=== PATIENT | male | born 1990 | race Caucasian/White ===

== ENCOUNTER 2022-05-21 02:23 | Emergency (ER) | payer BC, SELFPAY ==
[2022-05-21] VITALS (41 sets, daily range): BP systolic 122–151; BP diastolic 81–93; PULSE 67–93; RESP 16–20; TEMP 36.6; O2SAT 95–100
--- NOTE | ~2022-05-21 | CT_ITS ---
EXAMINATION: CT brain wo con DATE: 05/21/2022 06:33 INDICATION: Acute frontal headache. TECHNIQUE: Computed tomography (CT) of the head was performed without intravenous contrast. The mA wa s adjusted according to patient size. Iterative reconstruction technique was employed. The dose-lengt h product was 605.33 mGy-cm. COMPARISON: None FINDINGS: There is no intracranial hemorrhage, acute infarction, or abnormal intracranial mass lesion . The ventricles are normal in size. The orbits are normal. There is mucosal thickening in the parana dana sinuses. The mastoid air cells are normal. IMPRESSION: 1. Normal brain. Reviewed, dictated and finalized at location A. IMPRESSION: 1. Normal brain.
--- NOTE | 2022-05-21 05:34 | ED.HA ---
HPI - Headache General Chief Complaint: Headache <Ledy New MD - Last Filed: 05/21/22 09:49> Stated Complaint: headache, ear pain <Ledy New MD - Last Filed: 05/21/22 09:49> Time Seen by Provider: 05/21/22 04:59 <Ledy New MD - Last Filed: 05/21/22 09:49> Source: patient and RN notes reviewed <Ledy New MD - Last Filed: 05/21/22 09:49> Mode of arrival: ambulatory <Ledy New MD - Last Filed: 05/21/22 09:49> Limitations: no limitations <Ledy New MD - Last Filed: 05/21/22 09:49> History of Present Illness HPI Narrative: This is a 31 year old male who presents for evaluation of headache. He developed throbbing frontal headache Wednesday afternoon and it worsened throughout the evening. His headache has been constant and it is worse with movement. He reports having nausea and emesis x 2. He denies fever, URI, headache, focal weakness, or neck pain. He has been taking excedrin and ibuprofen for her pain, and his last dose was 6 hours ago. He was sleeping when i came into room and he reports pain is 4/10. He reports he got water into his left ear tonight and he feels like he can now get it out. <Ledy New MD - Last Filed: 05/21/22 09:49> Related Data Allergies/Adverse Reactions: Allergies Allergy/AdvReac Type Severity Reaction Status Date / Time No Known Allergies Allergy Verified 05/21/22 02:41 <Ledy New MD - Last Filed: 05/21/22 09:49> Review of Systems Review of Systems: All systems reviewed & are unremarkable except as noted in HPI and below <Ledy New MD - Last Filed: 05/21/22 09:49> Constitutional: Constitutional: Reports chills, Denies fatigue and Denies fever(s) <Ledy New MD - Last Filed: 05/21/22 09:49> Eyes: Eyes: Reports photophobia <Ledy New MD - Last Filed: 05/21/22 09:49> ENT: Denies nasal congestion and Denies sore throat <Ledy New MD - Last Filed: 05/21/22 09:49> Gastrointestinal: Gastrointestinal: Denies abdominal pain <Ledy New MD - Last Filed: 05/21/22 09:49> Neurologic: Denies syncope, Reports headache(s), Denies focal weakness and Denies numbness <Ledy New MD - Last Filed: 05/21/22 09:49> PMFSH Past Medical History Medical History: Medical History (Updated 05/21/22 @ 08:37 by David Del Cid MD) Patient denies medical problems <Ledy New MD - Last Filed: 05/21/22 09:49> Surgical History Surgical History: Surgical History (Updated 05/21/22 @ 05:38 by Ledy New MD) No pertinent past surgical history <Ledy New MD - Last Filed: 05/21/22 09:49> Social History Social History: Social History (Updated 05/21/22 @ 05:38 by Ledy New MD) Smoking status: Never smoker <Ledy New MD - Last Filed: 05/21/22 09:49> Exam Const: General: no acute distress and alert <Ledy New MD - Last Filed: 05/21/22 09:49> Nutritional Appearance: well nourished <Ledy New MD - Last Filed: 05/21/22 09:49> Orientation/consciousness: patient oriented x3 <Ledy New MD - Last Filed: 05/21/22 09:49> Limitations: no limitations <Ledy New MD - Last Filed: 05/21/22 09:49> HENMT: Head: normal to inspection <Ledy New MD - Last Filed: 05/21/22 09:49> Ears: TM abnormal obstructed by cerumen on the left <Ledy New MD - Last Filed: 05/21/22 09:49> Face and sinus: normal facial exam <Ledy New MD - Last Filed: 05/21/22 09:49> Mouth: Yes Normal oral and palatal mucosa present <Ledy New MD - Last Filed: 05/21/22 09:49> Eyes: Pupils: Equal, round and reactive pupils present <Ledy New MD - Last Filed: 05/21/22 09:49> EOM: EOMs intact bilaterally <Ledy New MD - Last Filed: 05/21/22 09:49> Neck: Neck: normal visual inspection, no lymphadenopathy and no meningeal signs <Ledy New MD - L
[2022-05-21] MEDS: diphenhydrAMINE HCl INJ 50 MG/ML VIAL 25 MG IV PUSH (05:41)
[2022-05-21] MEDS: SODIUM CHLORIDE 0.9% IV 1,000 ML 999 ML IV CONT ×2 (05:41→07:00)
[2022-05-21] MEDS: METOCLOPRAMIDE HCL INJ 10 MG/2 ML VIAL IV PUSH (05:41)
[2022-05-21] MEDS: KETOROLAC 30 MG/ML VIAL (*BKC) IV PUSH (05:42)
[2022-05-21 06:21] LABS: SARS-CoV-2 RNA PCR Negative
[2022-05-21 06:46] LABS: Basophils Percent Auto 0.2 % (0.2-1.2); Hematocrit 41.2 % (42.0-52.0); Immature Granulocyte Absolute 0.02 K/mm3 (0.00-0.031); Immature Granulocyte Percent A 0.5 % (0-0.5); Lymphocytes Absolute Auto 1.11 K/mm3 (0.9-3.2); Lymphocytes Percent Auto 26.5 % (18.3-44.2); Mean Corpuscular Volume 85.5 fl (80-100); Mean Platelet Volume 8.4 fl (7.4-10.4); Monocytes Absolute Auto 0.7 K/mm3 (0.1-0.6); Monocytes Percent Auto 17.4 % (2.6-8.5); Neutrophils Absolute Auto 2.3 K/mm3 (1.3-6.7); Neutrophils Percent Auto 55.4 % (45.5-73.1); Platelet Count Result 118 k/mm3 (150-375); Red Blood Count 4.82 M/mm3 (4.6-6.20); White Blood Count 4.2 K/mm3 (4.5-10.0)
[2022-05-21 06:58] LABS: Alanine Aminotransferase 39 U/L (6-50); Albumin Level 4.3 g/dL (3.5-5.1); Alkaline Phosphatase 46 U/L (38-126); Anion Gap 12 mmol/L (8-16); Aspartate Amino Transferase 39 U/L (17-59); Bilirubin,Total 0.5 mg/dL (0.2-1.3); Blood Urea Nitrogen 7 mg/dL (9-20); Calcium 8.6 mg/dL (8.4-10.2); Carbon Dioxide 24 mmol/L (22-30); Chloride 103 mmol/L (98-107); Estimated CRCL calculation 125 ml/min; Estimated Glomerular Filt Rate > 60; Glucose 102 mg/dL (65-110); Potassium 3.9 mmol/L (3.4-5.0); Sodium 139 mmol/L (137-145)
[2022-05-21] MEDS: methylPREDNISolone SOD SUCC 125 MG VIAL IV PUSH (07:00)
[2022-05-21 07:09] LABS: INR 1.2; Prothrombin Time 14.6 Seconds (11.1-14.7)
--- NOTE | 2022-05-21 07:17 | PC.NURSE ---
BSSR to Avril FARIAS
[2022-05-21 07:30] LABS: Partial Thromboplastin Time 32.9 SECONDS (22.3-36.8)
[2022-05-21] MEDS: PROCHLORPERAZINE EDISYLATE 10 MG/2 ML VIAL IV PUSH (08:53)
[2022-05-21] MEDS: MAGNESIUM SULF 2 GM/WATER 50ML 2 GM/50 ML BAG IVPB (08:53)
== END 2022-05-21 09:54 | disposition home or self-care (01) ==
PROVIDERS: Emergency Provider General Practice
DX: G43.909 Migraine, unspecified, not intractable, without status migrainosus (principal); Z20.822 Contact with and (suspected) exposure to COVID-19
CPT/HCPCS: 36415; 70450; 80053; 85025; 85610; 85730; 96361; 96365; 96375; 99284; C9803; J0131; J0780; J1200; J1885; J2765; J2930; J3475; J7030; U0003; U0005